=== PATIENT | female | born 1950 | race Caucasian/White ===

== ENCOUNTER → 2019-12-18 10:32 | Outpatient (CLI) | payer MEDICARE, BC | END | disposition home or self-care (01) | LOC: D.CT 10:32 | PROVIDERS: ATTEND Psychiatry & Neurology Neurology | DX: I67.1 Cerebral aneurysm, nonruptured (principal) ==

== ENCOUNTER → 2020-01-24 08:01 | Outpatient (CLI) | payer MEDICARE, BC ==
[2020-01-24 09:37] LABS: ALBUMIN 3.9 g/dL (3.4-5.0); BILIRUBIN - DIRECT 0.22 mg/dL (0.00-0.30); BILIRUBIN - INDIRECT 1.19 mg/dL (0.00-1.00); BILIRUBIN - TOTAL 1.41 mg/dL (0.2-1.3)
[2020-01-25 08:11] LABS: HEPATITIS C ANTIBODY <0.1 S/CO RAT (0.0-0.9)
== END | disposition home or self-care (01) ==
LOC: D.LAB 08:01 → D.US 09:30
PROVIDERS: ATTEND Internal Medicine Gastroenterology
DX: R63.4 Abnormal weight loss (principal); R11.2 Nausea with vomiting, unspecified; R74.0 Nonspecific elevation of levels of transaminase and lactic acid dehydrogenase [LDH]

== ENCOUNTER → 2020-02-15 08:23 | Outpatient (CLI) | payer MEDICARE, BC | END | disposition home or self-care (01) | LOC: D.RAD 08:23 | PROVIDERS: ATTEND Internal Medicine Gastroenterology | DX: K22.2 Esophageal obstruction (principal) ==

== ENCOUNTER 2020-03-05 13:21 | Inpatient (IN) | payer MEDICARE, BC ==
[~2020-03-05] VITALS: Ht 152.4 cm; Wt 45.8 kg
[2020-03-05 13:52] LABS: BASOPHILS 0.1 % (0-2); EOSINOPHILS 0.1 % (0-7); HEMOGLOBIN 14.2 g/dL (12-16); IMMATURE GRANULOCYTES 0.3 % (0-5); LYMPHOCYTES 6.6 % (15-50); MCH 31.6 pg (26.0-34.0); MCHC 33.8 g/dL (31.0-37.0); MCV 93.5 fL (80.0-100.0); MEAN PLATELET VOLUME 10.8 fL (7.4-10.4); MONOCYTES 4.9 % (2-11); PLATELET COUNT 247 10x3/uL (130-400); RBC 4.49 10x6/uL (4.00-5.40); RDW 13.8 % (11.5-14.5); WBC 14.7 10x3/uL (4.8-10.8)
[2020-03-05 14:00] LABS: CALC OSMOLALITY 283 mosm/kg (275-300); CALCIUM 10.2 mg/dL (8.5-10.1); CHLORIDE - SERUM 102 mmol/L (98-107); CREATININE - SERUM 1.1 mg/dL (0.6-1.3); GLUCOSE 131 mg/dL (74-106); POTASSIUM - SERUM 3.8 mmol/L (3.5-5.1); SODIUM 140 mmol/L (136-145); UREA NITROGEN 20 mg/dL (7-18); eGFR NON AFRICAN AMERICAN 52 mL/min (90-120)
[2020-03-05 14:09] LABS: ALBUMIN 3.9 g/dL (3.4-5.0); ALKALINE PHOSPHATASE 73 U/L (30-120); ALT (SGPT) 30 U/L (10-68); AMYLASE - SERUM 37 U/L (25-115); BILIRUBIN - TOTAL 1.75 mg/dL (0.2-1.3); LIPASE 159 U/L (73-393); PROTEIN - SERUM 6.6 g/dL (6.4-8.2); TROPONIN-I < 0.017 ng/mL (0.000-0.060)
--- NOTE | 2020-03-05 16:47 | NUR ---
REPORT GIVEN TO RODOLFO ESPINOSA AND SHE ADVISED ROOM HAS NOT BEEN CLEANED AT THIS TIME. KOSTA BARNETT CHARGE NOTIFIED.
[2020-03-05 17:25] LABS: BILIRUBIN NEGATIVE (NEGATIVE); GLUCOSE NEGATIVE (NEGATIVE); KETONE MODERATE mg/dL (NEGATIVE); NITRITE NEGATIVE (NEGATIVE); SPECIFIC GRAVITY 1.015 (1.005-1.020); UROBILINOGEN NORMAL (NORMAL)
--- NOTE | 2020-03-05 19:00 | NUR ---
ROOM STILL ISN'T READY
[2020-03-05] MEDS ORDERED: BUPROPION XL150 MG PO (20:07)
[2020-03-05] MEDS ORDERED: BUPROPION XL150 MG (20:07)
[2020-03-05] MEDS ORDERED: PLAVIX75 MG (20:07)
[2020-03-05] MEDS ORDERED: PLAVIX75 MG PO (20:07)
[2020-03-05] MEDS ORDERED: PROTONIX20 MG (20:08)
[2020-03-05] MEDS ORDERED: CARAFATE1 G (20:08)
[2020-03-05] MEDS ORDERED: PEPCID AC20 MG (20:08)
[2020-03-05] MEDS ORDERED: CARAFATE1 G PO (20:08)
[2020-03-05] MEDS ORDERED: [UNRECOGNIZED DRUG - OTHER] (20:09)
[2020-03-05] MEDS ORDERED: PEPCID AC20 MG PO (20:09)
[2020-03-05] MEDS ORDERED: PROTONIX40 MG (20:09)
[2020-03-05] MEDS ORDERED: DONEPEZIL HCL10 MG PO (20:09)
[2020-03-05] MEDS ORDERED: PROTONIX20 MG PO (20:09)
[2020-03-05] MEDS ORDERED: LISINOPRIL20 MG PO (20:09)
[2020-03-05] MEDS ORDERED: ZOFRAN4 MG PO (20:09)
[2020-03-05] MEDS ORDERED: DONEPEZIL HCL10 MG (20:09)
[2020-03-05] MEDS ORDERED: LISINOPRIL20 MG (20:09)
--- NOTE | 2020-03-05 20:15 | NUR ---
PATIENT ARRIVED ON FLOOR VIA BED AND AMBULATED TO OUR BED. NO S/S OF ACUTE DISTRESS. NO C/O AT THIS TIME. PATIENT HAS A 20 GAUGE TO THE RIGHT FOREARM, NORMAL SALINE @ 100 ML/HR. IV IS PATENT WITHOUT REDNESS, SWELLING, OR TENDERNESS. PATIENT IS ON TELEMETRY. PATIENT IS UP WITH ASSIST TO THE BATHROOM. PATIENT STATED "I HAVE DEMENTIA AND MY SHORT-TERM MEMORY ISN'T THAT GOOD." PATIENT'S DAUGHTER STATED THAT SHE WOULD LIKE TO FACETIME WHEN THE DOCTOR ARRIVES SO THAT SHE CAN TAKE NOTES. CALL LIGHT WITHIN REACH. WILL CONTINUE TO MONITOR.
[2020-03-06 04:17] VITALS: BP 157/81; BMI 19.7
[2020-03-06 05:42] LABS: BILIRUBIN - TOTAL 1.81 mg/dL (0.2-1.3); CALCIUM 8.8 mg/dL (8.5-10.1); CARBON DIOXIDE 26.6 mmol/L (21.0-32.0); MAGNESIUM - SERUM 1.7 mg/dL (1.8-2.4); POTASSIUM - SERUM 3.6 mmol/L (3.5-5.1); PROTEIN - SERUM 5.1 g/dL (6.4-8.2)
[2020-03-06 05:52] LABS: BASOPHILS 0.2 % (0-2); EOSINOPHILS 0.5 % (0-7); HEMATOCRIT 35.1 % (36.0-48.0); HEMOGLOBIN 11.9 g/dL (12-16); IMMATURE GRANULOCYTES 0.2 % (0-5); LYMPHOCYTES 28.6 % (15-50); MCHC 33.9 g/dL (31.0-37.0); MCV 94.4 fL (80.0-100.0); MEAN PLATELET VOLUME 11.1 fL (7.4-10.4); NEUTROPHILS 63.5 % (40-80); RBC 3.72 10x6/uL (4.00-5.40); RDW 13.9 % (11.5-14.5)
[2020-03-06 05:58] LABS: PLATELET COUNT 178 10x3/uL (130-400); WBC 5.6 10x3/uL (4.8-10.8)
[2020-03-06 09:15] VITALS: BP 149/67
[2020-03-06 12:21] LABS: HEMATOCRIT 36.4 % (36.0-48.0); HEMOGLOBIN 12.1 g/dL (12-16)
[2020-03-06 12:36] VITALS: BP 151/56
[2020-03-06 15:07] VITALS: BMI 19.7
--- NOTE | 2020-03-06 16:00 | NUR ---
SCD'S ON PATIENT SHE IS WITHOUT DISTRESS. FAMILY AT BEDSIDE. MONITOR FOR NEEDS
[2020-03-06 17:01] VITALS: BP 117/69
[2020-03-06 17:49] VITALS: Ht 152.4 cm; Wt 45.8 kg
[2020-03-06 18:24] LABS: HEMATOCRIT 36.9 % (36.0-48.0); HEMOGLOBIN 12.3 g/dL (12-16)
[2020-03-06 20:00] VITALS: BP 158/78
--- NOTE | 2020-03-06 20:00 | NUR ---
PATIENT RESTING IN BED ON PHONE. NO S/S OF ACUTE DISTRESS. NO C/O AT THIS TIME. PATIENT HAS STATED, "I HAVE A LITTLE BIT ON DEMENTIA. I HAVE A HARD TIME WITH MY SHORT-TERM MEMORY." PATIENT HAS RIGHT FOREARM IV, NORMAL SALINE @ 100 ML/HR. IV IS PATENT WITHOUT REDNESS, SWELLING, OR TENDERNESS. PATIENT IS ON TELEMETRY: 66 NORMAL SINUS. PATIENT IS UP WITH ASSIST TO THE BATHROOM. CALL LIGHT WITHIN REACH. WILL CONTINUE TO MONITOR.
[2020-03-07] VITALS: BP 145/81
--- NOTE | 2020-03-07 00:54 | NUR ---
I have reviewed this patient and I concur with the Shift Assessment completed by the Licensed Practical Nurse today this shift.
[2020-03-07 04:00] VITALS: BP 143/65
[2020-03-07 04:27] LABS: BASOPHILS 0.5 % (0-2); HEMATOCRIT 34.6 % (36.0-48.0); HEMOGLOBIN 11.5 g/dL (12-16); LYMPHOCYTES 41.7 % (15-50); MCH 31.4 pg (26.0-34.0); MCHC 33.2 g/dL (31.0-37.0); MCV 94.5 fL (80.0-100.0); MEAN PLATELET VOLUME 10.9 fL (7.4-10.4); MONOCYTES 5.5 % (2-11); NEUTROPHILS 51.3 % (40-80); PLATELET COUNT 160 10x3/uL (130-400); RBC 3.66 10x6/uL (4.00-5.40); RDW 13.8 % (11.5-14.5)
[2020-03-07 05:02] LABS: ALBUMIN 2.8 g/dL (3.4-5.0); ANION GAP 9.3 mmol/L (8-16); BILIRUBIN - TOTAL 1.34 mg/dL (0.2-1.3); CALCIUM 8.4 mg/dL (8.5-10.1); CARBON DIOXIDE 28.2 mmol/L (21.0-32.0); CREATININE - SERUM 0.9 mg/dL (0.6-1.3); MAGNESIUM - SERUM 1.6 mg/dL (1.8-2.4); PHOSPHOROUS 3.2 mg/dL (2.5-4.9); POTASSIUM - SERUM 3.5 mmol/L (3.5-5.1); PROTEIN - SERUM 4.7 g/dL (6.4-8.2); THYROID STIMULATING HORMONE 1.41 uIU/mL (0.36-3.74)
[2020-03-07 06:41] LABS: HEMATOCRIT 36.2 % (36.0-48.0)
[2020-03-07 09:11] LABS: CA 27-29 18.4 U/mL (0.0-38.6)
[2020-03-07 09:13] VITALS: BP 162/71
[2020-03-07] MEDS ORDERED: MILK OF MAGNESI30 ML PO (10:51)
[2020-03-07 11:47] VITALS: BP 164/74
[2020-03-07 13:10] LABS: CA125 10.7 U/mL (0.0-38.1); CEA 0.9 ng/mL (0.0-4.7)
[2020-03-07 13:38] LABS: % SATURATION 39 % (15-55); IRON 74 ug/dl (35-150); TOTAL IRON BIND CAPACITY 187 ug/dl (260-445); UNSAT IRON BIND CAPACITY 113 ug/dl (150-375)
[2020-03-07 15:42] VITALS: BP 137/75
--- NOTE | 2020-03-07 18:27 | NUR ---
REMAINS WITHOUT CHANGE. TOLERATING MINIMAL CLD.
[2020-03-07 20:00] VITALS: BP 114/75
--- NOTE | 2020-03-07 20:00 | NUR ---
PATIENT RESTING IN BED WITH DAUGHTER AT BEDSIDE. NO S/S OF ACUTE DISTRESS. NO C/O AT THIS TIME. PATIENT HAS RIGHT FOREARM IV, NORMAL SALINE @ 100 ML/HR. IV IS PATENT WITHOUT REDNESS, SWELLING, OR TENDERNESS. PATIENT HAS TELEMETRY ON: 67 SINUS. PATIENT IS UP WITH ASSISTANCE TO THE BATHROOM. CALL LIGHT WITHIN REACH. WILL CONTINUE TO MONITOR.
--- NOTE | 2020-03-08 02:22 | NUR ---
I have reviewed this patient and I concur with the Shift Assessment completed by the Licensed Practical Nurse today this shift.
[2020-03-08 04:00] VITALS: BP 152/72
[2020-03-08 06:23] LABS: BASOPHILS 0.2 % (0-2); EOSINOPHILS 0.9 % (0-7); HEMATOCRIT 36.2 % (36.0-48.0); HEMOGLOBIN 11.9 g/dL (12-16); LYMPHOCYTES 25.9 % (15-50); MCHC 32.9 g/dL (31.0-37.0); MCV 94.3 fL (80.0-100.0); PLATELET COUNT 162 10x3/uL (130-400); RBC 3.84 10x6/uL (4.00-5.40); RDW 13.8 % (11.5-14.5); WBC 4.6 10x3/uL (4.8-10.8)
[2020-03-08 06:41] LABS: ALKALINE PHOSPHATASE 55 U/L (30-120); ALT (SGPT) 26 U/L (10-68); BILIRUBIN - TOTAL 1.73 mg/dL (0.2-1.3); CALCIUM 8.6 mg/dL (8.5-10.1); CARBON DIOXIDE 29.1 mmol/L (21.0-32.0); CHLORIDE - SERUM 107 mmol/L (98-107); CREATININE - SERUM 0.8 mg/dL (0.6-1.3); GLUCOSE 72 mg/dL (74-106); MAGNESIUM - SERUM 1.7 mg/dL (1.8-2.4); PHOSPHOROUS 3.3 mg/dL (2.5-4.9); PROTEIN - SERUM 5.2 g/dL (6.4-8.2); SODIUM 140 mmol/L (136-145); eGFR NON AFRICAN AMERICAN 75 mL/min (90-120)
[2020-03-08 06:43] LABS: CALC OSMOLALITY 275 mosm/kg (275-300); POTASSIUM - SERUM 4.1 mmol/L (3.5-5.1); UREA NITROGEN 6 mg/dL (7-18)
[2020-03-08 09:16] VITALS: BP 139/73
[2020-03-08] MEDS ORDERED: FLUTICASONE PRO16 GM NASAL (10:59)
[2020-03-08] MEDS ORDERED: ZYRTEC10 MG PO (10:59)
--- NOTE | 2020-03-08 11:56 | NUR ---
ASSESSMENT PER FLOW SHEET. ASSIST TO BATHROOM. DES MAT IN PLACE.CALL LIGHT IN REACH.
--- NOTE | 2020-03-08 12:18 | MORECARE ---
CASE MANAGEMENT DISCHARGE SUMMARY PATIENT: DOLLY ALONZO UNIT: [id number] ADM DATE: 03/06/20 AGE: 69 : 48 SEX: F ROOM/BED: D.2225 AUTHOR: DION BERNABE PHYSICIAN: REFERRING PHYSICIAN: MODESTA UMANZOR MD DATE OF SERVICE: 03/08/20 Discharge Plan Patient Name: DOLLY ALONZO Facility: [facility]:[place] : 1950 Planned Disposition: Home Anticipated Discharge Date: Discharge Date: Expected LOS: Initial Reviewer: [id number] Initial Review Date: 03/08/2020 Generated: 03/08/20 1:18 pm DCPIA - Discharge Planning Initial Assessment Updated by CONRAD: Chula Burnette on 03/08/20 12:17 pm * Is the patient Alert and Oriented? Yes * How many steps to enter\exit or inside your home? * PCP ALEXIS * Pharmacy [facility] IN [place] * Preadmission Environment Home Alone * ADLs Independent * Equipment None * List name and contact numbers for known caregivers / representatives who currently or will assist patient after discharge: BENJAMIN ALONZO - SON - [phone] MALIA CHOE - DAUGHTER - [phone] * Verbal permission to speak to the caregivers and representatives has been obtained from the patient. Yes * Community resources currently utilized None * Additional services required to return to the preadmission environment? No * Can the patient safely return to the preadmission environment? Yes * Has this patient been hospitalized within the prior 30 days at any hospital? No Coverage Notice Reviewer: [id number] - Chula Burnette Notice Issued Date-Time: 03/08/2020 12:13 Notice Type: IM Discharge Notice Notice Delivered To: Patient Relationship to Patient: Self Clicking Machine Operator Name: Delivery Method: HAND - Hand Delivered Theresa Days: Prior Verbal Notification: Recipient Understood Notice: Yes Recipient Signature: Yes Med Rec Note Co-signed by Attending: Coverage Notice Comment: Patient Name: DOLLY ALONZO Page [id number] at 1218 All edits/amendments must be made on the electronic document DICTATION DATE: 03/08/201217 ROLL HANDLER: KATHY 03/08/201217 RPT#: [id number] DC DATE: STATUS: ADM IN [facility] [address] [place] [address] END OF REPORT
--- NOTE | 2020-03-08 12:25 | MORECARE ---
CASE MANAGEMENT DISCHARGE SUMMARY PATIENT: DOLLY ALONZO UNIT: [id number] ADM DATE: 03/06/20 AGE: 69 : 48 SEX: F ROOM/BED: D.2225 AUTHOR: FLORECITA,DOC PHYSICIAN: REFERRING PHYSICIAN: MODESTA UMANZOR MD DATE OF SERVICE: 03/08/20 Discharge Plan Patient Name: DOLLY ALONZO Facility: [facility]:[place] : 1950 Planned Disposition: Home Anticipated Discharge Date: Discharge Date: Expected LOS: Initial Reviewer: [email or web address] Initial Review Date: 03/08/2020 Generated: 03/08/20 1:25 pm Comments DCP- Discharge Planning Updated by [email or web address]: Chula Burnette on 03/08/20 11:[address] Patient Name: DOLLY ALONZO Admission Status: ER Accout number: [id number] Admission Date: 03-06-2020 : 1950 Admission Diagnosis:ABNORMAL WEIGHT LOSS Attending: MODESTA UMANZOR Current LOS: 2 Anticipated DC Date: Planned Disposition: Home Primary Insurance: MEDICARE A & B Discharge Planning Comments: CM met with patient to complete initial dc planning assessment. CM educated patient on the CM role and verbal consent given by patient to complete assessment. Patient lives at home with family. Patient is independent. At discharge patient plans to return home and feels this is a safe discharge. CM discussed availability of home health, rehab services, and medical equipment. Patient will have family to transport home. Patient denied known discharge needs at this time. D/C IMM signed 03/08/20 @ 1210. CM will continue to follow and will assist as needed with dc plans/needs. Clam Digger: Chula Burnette DCPIA - Discharge Planning Initial Assessment Updated by [email or web address]: Chula Burnette on 03/08/20 12:17 pm * Is the patient Alert and Oriented? Yes * How many steps to enter\exit or inside your home? * PCP ALEXIS * [facility] [place] * Preadmission Environment Home Alone * ADLs Independent * Equipment None * List name and contact numbers for known caregivers / representatives who currently or will assist patient after discharge: BENJAMIN ALONZO - SON - [phone] MALIA CHOE - DAUGHTER - [phone] * Verbal permission to speak to the caregivers and representatives has been obtained from the patient. Yes * Community resources currently utilized None * Additional services required to return to the preadmission environment? No * Can the patient safely return to the preadmission environment? Yes * Has this patient been hospitalized within the prior 30 days at any hospital? No Coverage Notice Reviewer: [email or web address] Dylan Burnette Notice Issued Date-Time: 03/08/2020 12:13 Notice Type: IM Discharge Notice Notice Delivered To: Patient Relationship to Patient: Self Cellar Supervisor Name: Delivery Method: HAND - Hand Delivered Theresa Days: Prior Verbal Notification: Recipient Understood Notice: Yes Recipient Signature: Yes Med Rec Note Co-signed by Attending: Coverage Notice Comment: Last DP export: 03/08/20 11:18 am Patient Name: DOLLY ALONZO Page [id number] at 1225 All edits/amendments must be made on the electronic document DICTATION DATE: 03/08/20 1225 NOODLE MAKER: KATHY 03/08/20 1225 RPT#: [id number] DC DATE: STATUS: ADM IN [facility] [address] [place] [address] END OF REPORT
[2020-03-08 13:17] VITALS: BP 159/70
--- NOTE | 2020-03-08 14:42 | NUR ---
DISCHARGE INSTRUCTIONS,STATES UNDERSTANDING. IV DCD WITH CATH TIP INTACT. LEFT UNIT VIA WHEELCHAIR FOR TRANSPORT HOME.
--- NOTE | 2020-03-10 09:24 | MORECARE ---
CASE MANAGEMENT DISCHARGE SUMMARY PATIENT: DOLLY ALONZO UNIT: [id number] ADM DATE: 03/06/20 AGE: 69 : 48 SEX: F ROOM/BED: D.2225 AUTHOR: FLORECITA,DOC PHYSICIAN: REFERRING PHYSICIAN: MODESTA UMANZOR MD DATE OF SERVICE: 03/10/20 Discharge Plan Patient Name: DOLLY ALONZO Facility: [facility]:[place] : 1950 Planned Disposition: Home Anticipated Discharge Date: Discharge Date: 03/08/2020 Expected LOS: Initial Reviewer: [email or web address] Initial Review Date: 03/08/2020 Generated: 03/10/20 10:23 am Comments DCP- Discharge Planning Updated by [email or web address]: Chula Burnette on 03/08/20 11:[address] Patient Name: DOLLY ALONZO Admission Status: ER Accout number: [id number] Admission Date: 03-06-2020 : 1950 Admission Diagnosis:ABNORMAL WEIGHT LOSS Attending: MODESTA UMANZOR Current LOS: 2 Anticipated DC Date: Planned Disposition: Home Primary Insurance: MEDICARE A & B Discharge Planning Comments: CM met with patient to complete initial dc planning assessment. CM educated patient on the CM role and verbal consent given by patient to complete assessment. Patient lives at home with family. Patient is independent. At discharge patient plans to return home and feels this is a safe discharge. CM discussed availability of home health, rehab services, and medical equipment. Patient will have family to transport home. Patient denied known discharge needs at this time. D/C IMM signed 03/08/20 @ 1210. CM will continue to follow and will assist as needed with dc plans/needs. Plain Clothes Police Officer: Chula Burnette DCPIA - Discharge Planning Initial Assessment Updated by [email or web address]: Chula Burnette on 03/08/20 12:17 pm * Is the patient Alert and Oriented? Yes * How many steps to enter\exit or inside your home? * PCP ALEXIS * Pharmacy [facility] IN [place] * Preadmission Environment Home Alone * ADLs Independent * Equipment None * List name and contact numbers for known caregivers / representatives who currently or will assist patient after discharge: BENJAMIN ALONZO - SON - [phone] MALIA CHOE - DAUGHTER - [phone] * Verbal permission to speak to the caregivers and representatives has been obtained from the patient. Yes * Community resources currently utilized None * Additional services required to return to the preadmission environment? No * Can the patient safely return to the preadmission environment? Yes * Has this patient been hospitalized within the prior 30 days at any hospital? No Coverage Notice Reviewer: [email or web address] Dylan Burnette Notice Issued Date-Time: 03/08/2020 12:13 Notice Type: IM Discharge Notice Notice Delivered To: Patient Relationship to Patient: Self Dock Operations Supervisor Name: Delivery Method: HAND - Hand Delivered Theresa Days: Prior Verbal Notification: Recipient Understood Notice: Yes Recipient Signature: Yes Med Rec Note Co-signed by Attending: Coverage Notice Comment: Last DP export: 03/08/20 11:25 am Patient Name: DOLLY ALONZO Page [id number] at 0924 All edits/amendments must be made on the electronic document DICTATION DATE: 03/10/20922 REGIONAL SAFETY MANAGER: KATHY 03/10/20922 RPT#: [id number] DC DATE:03/08/20 STATUS: [facility] [address] [place] [address] END OF REPORT
[2020-03-10 19:08] LABS: SPE - A/G RATIO 1.7 (0.7-1.7); SPE - ALBUMIN 2.9 g/dL (2.9-4.4); SPE - ALPHA-1 GLOBULIN 0.2 g/dL (0.0-0.4); SPE - ALPHA-2 GLOBULIN 0.6 g/dL (0.4-1.0); SPE - BETA GLOBULIN 0.5 g/dL (0.7-1.3); SPE - GAMMA GLOBULIN 0.4 g/dL (0.4-1.8); SPE - M-SPIKE Not Observed g/dL (Not Observed); SPE - TOTAL PROTEIN 4.6 g/dL (6.0-8.5)
[2020-03-11 17:08] LABS: SJOGRENS AB SSA <0.2 AI (0.0-0.9); SJOGRENS AB SSB <0.2 AI (0.0-0.9)
[2020-03-11 17:08] LABS: ANA REFLEX - DIRECT Negative (Negative)
[2020-03-12 18:08] LABS: LEAD None Detected ug/dL (0-4)
== END 2020-03-08 14:43 | disposition home or self-care (01) | DRG 380 ==
LOC: D.ER 13:21 → D.MS 16:25 → OBSVTIME 16:25 → D.MS 16:25
PROVIDERS: Family Medicine; Internal Medicine Gastroenterology; Internal Medicine Hematology & Oncology; ADMIT Family Medicine; ATTEND Family Medicine
DX: K22.10 Ulcer of esophagus without bleeding (principal); E43 Unspecified severe protein-calorie malnutrition; Z68.1 Body mass index [BMI] 19.9 or less, adult; E86.0 Dehydration; R11.2 Nausea with vomiting, unspecified; R63.4 Abnormal weight loss; I10 Essential (primary) hypertension; I25.10 Atherosclerotic heart disease of native coronary artery without angina pectoris; F03.90 Unspecified dementia, unspecified severity, without behavioral disturbance, psychotic disturbance, mood disturbance, and anxiety; E83.52 Hypercalcemia; R73.9 Hyperglycemia, unspecified; R43.2 Parageusia